=== PATIENT | female | born 1945 | race Caucasian/White ===

== ENCOUNTER 2022-11-28 14:31 | Outpatient (CLI) | payer MEDICARE, BC, SELFPAY | END 2022-11-28 14:32 | disposition home or self-care (01) | PROVIDERS: Visit Provider Internal Medicine | DX: E03.9 Hypothyroidism, unspecified (principal); E66.9 Obesity, unspecified | CPT/HCPCS: 84443 ==

== ENCOUNTER 2023-11-22 11:22 | Outpatient (CLI) | payer MEDICARE, BC, SELFPAY | END 2023-11-22 11:23 | disposition home or self-care (01) | LOC: NFLDREF 11-29 10:10 | PROVIDERS: PCP Internal Medicine; Referring Provider Internal Medicine; Visit Provider Internal Medicine | DX: E78.5 Hyperlipidemia, unspecified (principal); M85.80 Other specified disorders of bone density and structure, unspecified site; E03.9 Hypothyroidism, unspecified | CPT/HCPCS: 80061; 82306; 84443 ==

== ENCOUNTER 2024-12-22 15:18 | Outpatient (CLI) | payer MEDICARE, BC, SELFPAY | END 2024-12-22 15:19 | disposition home or self-care (01) | LOC: NFLDREF 12-26 03:24 | PROVIDERS: PCP Internal Medicine; Referring Provider Internal Medicine; Visit Provider Internal Medicine | DX: E03.9 Hypothyroidism, unspecified (principal) | CPT/HCPCS: 84443 ==